=== PATIENT | male | born 1965 | race Caucasian/White ===

== ENCOUNTER → 2020-04-23 | Outpatient (CLI) | payer OTHER ==
[~2020-04-23] MED LIST: ASPI81TA59 PO; ESOM20CA PO; FEXO180T81 PO; FLUT9.9S NS; LISI-334 PO; MULT-245 PO; OMEG1CAP50 PO; SIMV20TA PO
== END | disposition home or self-care (01) ==
LOC: LAB 11:00
PROVIDERS: ATTEND Registered Nurse
DX: Z01.812 Encounter for preprocedural laboratory examination (principal); R13.10 Dysphagia, unspecified; T30.0 Burn of unspecified body region, unspecified degree; Z20.828 Contact with and (suspected) exposure to other viral communicable diseases
CPT/HCPCS: C9803; U0003; 36415

== ENCOUNTER → 2020-04-27 | Day surgery (SDC) | payer OTHER ==
[~2020-04-27] MED LIST changes: +IPRATRPIUM/ALBUTEROL 0.5/2.5MG 3 ML NEBU. NEB PRN; +IV RINGERS SOLUTION,LACTATED 1,000 ML IV SCH; +MIDAZOLAM HCL PF 2 MG/2 ML VIAL. IV ONE; +ONDANSETRON PF 4 MG/2 ML VIAL. IV PRN; +PROPOFOL 10,000 MCG/ML (20ML) VIAL IV ONE
[2020-04-27 08:59] VITALS: BP 119/87
--- NOTE | 2020-04-28 18:06 | PATHOLOGY ---
[facility] Accession Number: [id number] . 01 Material submitted: . PART A: stomach - ANTRUM PART B: esophagus - DISTAL ESOPHAGUS. Modifiers: distal . 01 Clinical history: . A. Rule out H. pylori gastritis B. Esophagitis/stricture . 02 Diagnosis: A. Gastric biopsies, antrum: - Chronic gastritis, mild. . B. Esophageal biopsies, distal esophagus: - Reflux esophagitis with focally increased eosinophils. See comment. (JPM:lakisha; 04/28/2020) [facility] 04/28/2020 1002 Local . 02 Comment: Sections of the gastric biopsy reveal segments of gastric body and gastric antral mucosa showing congestion and mild chronic inflammation. A properly controlled immunoperoxidase stain for Helicobacter is negative for Helicobacter organisms. . Sections of the distal esophageal biopsy reveal segments of focally tangentially oriented hyperplastic squamous esophageal mucosa and esophagogastric mucosa showing chronic inflammation, consistent with reflux esophagitis. One of the biopsy segments of squamous esophageal mucosa shows increased intraepithelial eosinophils. Focally, there are up to 20-30 intraepithelial eosinophils per high power field. The findings are suggestive of eosinophilic esophagitis. There is no evidence of Emanuel's change, dysplasia, or malignancy. (JPM:lakisha; 04/28/2020) . . Special stain performed: Immunoperoxidase stain for Helicobacter on A1 . 02 Electronically signed: . Catracho Feng MD, Pathologist NPI- [id number] . 01 Gross description: . A. The specimen is received in formalin, labeled "Kalani, Ulisses, antrum" and consists of 2 fragments of pink-mann tissue measuring 0.4 x 0.2 cm each which are entirely submitted in A1. . B. The specimen is received in formalin, labeled "Potter, Ulisses, distal esophagus" and consists of multiple fragments of mann tissue measuring 1.0 x 0.5 x 0.2 cm in aggregate which are entirely submitted in B1. (SDY; 04/27/2020) [facility]/SYU 04/27/2020 1615 Local . 02 Pathologist provided ICD-10: K29.50, K21.0 . 02 CPT . 372647, 772292, [id number] Specimen Comment: A courtesy copy of this report has been sent to [phone], [phone] Specimen Comment: [id number] Specimen Comment: Report sent to / DR ABARCA Performed at: 01 [facility] [address], [place] [id number] MD Petr Turner MD Phone: [phone] Performed at: 02 [facility] [place] [place] [address] [place], [place] [id number] MD Catracho Feng MD Phone: [phone]
== END | disposition home or self-care (01) ==
LOC: SURG 06:59
PROVIDERS: ATTEND Internal Medicine Gastroenterology
DX: R13.10 Dysphagia, unspecified (principal); K22.2 Esophageal obstruction; K29.50 Unspecified chronic gastritis without bleeding; K21.0 Gastro-esophageal reflux disease with esophagitis; I10 Essential (primary) hypertension; G47.33 Obstructive sleep apnea (adult) (pediatric); M19.90 Unspecified osteoarthritis, unspecified site; Z79.82 Long term (current) use of aspirin; Z98.890 Other specified postprocedural states; Z79.899 Other long term (current) drug therapy
CPT/HCPCS: 43239; 43450; J2704; J7120

== ENCOUNTER 2021-10-20 10:51 | Emergency (ER) | payer OTHER ==
[~2021-10-20] VITALS: Ht 172.7 cm; Wt 93.1 kg
[~2021-10-20 10:51] MED LIST changes: -IPRATRPIUM/ALBUTEROL 0.5/2.5MG 3 ML NEBU. NEB PRN; -IV RINGERS SOLUTION,LACTATED 1,000 ML IV SCH; -LISI-334 PO; +LISI20TA18 PO; -MIDAZOLAM HCL PF 2 MG/2 ML VIAL. IV ONE; -ONDANSETRON PF 4 MG/2 ML VIAL. IV PRN; -PROPOFOL 10,000 MCG/ML (20ML) VIAL IV ONE
--- NOTE | 2021-10-20 11:54 | RAD ---
EXAM: Chest, 2 views. HISTORY: Short of breath. Covid 19. COMPARISON: None. FINDINGS: 2 views of the chest are obtained. There is right upper and suspected left lower lobe inter stitial infiltrate. There is no consolidation, pleural effusion or pneumothorax. The heart is normal in size. There has been distal right clavicular resection. IMPRESSION: Right upper lobe and suspected left lower lobe interstitial infiltrate. Electronically signed by: Wendy Jenkins MD (10/20/2021 11:51 AM) [id number]
[2021-10-20 12:00] VITALS: BP 135/78
--- NOTE | 2021-10-20 12:05 | PHYS DOC ---
Adult General Chief Complaint Chief Complaint: SHORTNESS OF BREATH HPI HPI Patient is a 56-year-old male presenting via POV for cough. States he has had several days of upper respiratory symptoms that have developed into a productive cough. Does admit he is unvaccinated against COVID-19 and that he recently tested positive via rapid test at outlying urgent care. States he has history of hypertension otherwise no other medical diagnoses. Has been utilizing NyQuil and DayQuil without relief, started Mucinex this morning without noticeable improvement prompting him to come in for evaluation. No fever greater than 100.4, syncope, chest pain, ripping or tearing sensation in torso, abdominal pain, urinary symptoms, changes in motor or sensory or neuro function Review of Systems Review of Systems Fourteen body systems of review of systems have been reviewed. See HPI for pertinent positives and negative responses, other sue all other systems are negative, non-pertinent or non-contributory Allergies Allergies Allergies Coded Allergies Type Severity Reaction Last Updated Verified No Known Drug Allergies 04/20/20 No Physical Exam Physical Exam General: Appears well, non toxic, and comfortable Skin: Warm, dry. Normal for ethnicity. HEENT: Atraumatic. PERRLA. Rhinorrhea and congestion. Nasal turbinates boggy b/l . Moist mucous membranes. Uvula midline. Maintaining secretions. No phonation changes. Neck: Trachea midline. Normal ROM. No stridor. Respiratory: Normal WOB. No tachypnea or signs of respiratory distress. Patient does have crackles present to bilateral lung bases and right upper lobe area Cardiovascular: Regular rate and rhythm. Normal peripheral perfusion. Abdomen: Soft. Non tender. No distension. Back: Normal ROM. Musculoskeletal: No swelling or deformity. Neuro: Alert and oriented x 4. MAEE. Lymph: No cervical LAD. Psych: Normal affect and mood. Current Patient Data Vital Signs Vital Signs Date Time Temp Pulse Resp B/P (MAP) Pulse Ox O2 Delivery O2 Flow Rate FiO2 10/20/21 11:01 86 20 97 Room Air EKG EKG [] Radiology/Procedures Radiology/Procedures EXAM: Chest, 2 views. HISTORY: Short of breath. Covid 19. COMPARISON: None. FINDINGS: 2 views of the chest are obtained. There is right upper and suspected left lower lobe interstitial infiltrate. There is no consolidation, pleural effusion or pneumothorax. The heart is normal in size. There has been distal right clavicular resection. IMPRESSION: Right upper lobe and suspected left lower lobe interstitial infiltrate. Electronically signed by: Wendy Jenkins MD (10/20/2021 11:51 AM) [id number] Heart Score C/O Chest Pain: No Risk Factors: Risk Factors: DM, Current or recent (<one month) smoker, HTN, HLP, family history of CAD, obesity. Risk Scores: Risk Factors: DM, Current or recent (<one month) smoker, HTN, HLP, family history of CAD, obesity. Course & Med Decision Making Course & Med Decision Making ABCs unremarkable HPI physical exam and comprehensive ER work-up concerning for pneumonia in the setting of known Covid positive individual who is unvaccinated against COVID-19 Joint decision made to start antibiotics with subsequent prescription written. Little indication for further diagnostic work-up in ER setting and/or need for hospitalization at present. Continued supportive care practices, self quarantine, and adherence to CDC protocol advised with recommendations to follow-up with primary care in outpatient setting when safe to do so. Strict return precautions discussed at length prior to ER departure Christianon Disclaimer Dragon Disclaimer This electronic medical record was generated, in whole or in part, using a voice recognition dictation system. Departure Departure: Impression: Primary Impression: Pneumonia due to COVID-19 virus Disposition: HOME / SELF CARE / HOMELESS Condition: STABLE Referrals: HAKAN ABARCA DO (PCP) Patient Instructions: Pneumonia, Adult Additional Instructions: You have been diagnosed with COVID-19. It is an infection caused by a new type of coronavirus. COVID-19 will cause cold-like or mild flu symptoms in most. It can cause more severe symptoms like problems breathing in some. There is no treatment for COVID-19. The body will clear the infection over time. Self-care will help to ease discomfort. With that said, you were found to have a fever today in the setting of pneumonia and so joint decision was made to continue to treat fever with NSAIDs and/or Tylenol and your pneumonia with azithromycin and amoxicillin antibiotics. Steps to Take: Self-Care Rest as needed. Healthy habits may help you feel better. Steps include: Choose healthy foods including fruits and vegetables. Drink water throughout the day. Get plenty of sleep each night. If you smoke, try to quit. It may ease breathing. Avoid alcohol. Keep Others Healthy The virus can spread to others. Droplets are released every time you sneeze or cough. The droplets can get into the mouth, nose, or eyes of people near you and lead to infection. To lower the chances of spreading COVID-19 to others: Stay at home until your doctor has said it is safe to leave. If you tested positive this will mean staying isolated per CDC guidelines depending on your vaccination status - Avoid public areas, events, or transportation. Do not return to work or school until your doctor has said it is safe to do so. - Call ahead if you need to go to a medical center. Let them know you may have COVID-19. It will help them guide you where to go. They may also ask you to wear a facemask when you come to the office. - If you call for emergency medical services, let them know you may have COVID-19. While at home: - Try to avoid close contact with others. Stay about 6 feet away. - If possible, spend most of your time in a separate room from others. - Use a face mask if you will be in close contact with others such as sharing a room or vehicle. - Have someone wipe down common surfaces in the home. Use household firer portable boiler every day on areas like doorknobs, counters, or sinks. - Cough or sneeze into a tissue. Throw the tissue away right after use. If a tissue is not available, cough or sneeze into your elbow. - Wash your hands often. Wash them after sneezing or coughing. Use soap and water and wash for at least 20 seconds. Alcohol based hand flue cleaner can be used if soap and water is not available. - Do not prepare food for others. Avoid sharing personal items like forks, spoons, or toothbrushes. - Avoid close contact with pets while you are sick. There is no evidence of the virus passing to pets. This is a safety step until more is known about this virus. Isolation can be frustrating. Social interaction can help. Keep in touch with friends and family through phone and tech options. You can still interact with others in your home, just keep a safe distance of about 6 feet. Follow-up: Your doctors office will check in with you to see if there are any changes in your health. You may be asked to keep track of symptoms to share with them. They will also let you know when you are clear to be in public again. Problems to Look Out For: Contact your doctor if your recovery is not going as you expect. Get emergency care if you have problems such as: - Trouble breathing - Nonstop chest pain or pressure - Changes in awareness, confusion, or problems waking - Lips or face have bluish color - Worsening of symptoms If you think you have an emergency, call for emergency medical services right away. Scripts Azithromycin (AZITHROMYCIN TABLET) 250 Mg Tablet 250 MG PO DAILY for ANTI-BIOTIC, #4 TAB 0 Refills Prov: ISMAEL GREGORY DO 10/20/21 Amoxicillin (AMOXICILLIN) 500 Mg Tablet 2 TAB PO TID for pneumonia for 5 Days, #30 TAB Prov: ISMAEL GREGORY DO 10/20/21 ISMAEL GREGORY DO Oct 20, 2021 12:05
[2021-10-20] MEDS ORDERED: AZIT250T6 PO (12:29)
[2021-10-20] MEDS ORDERED: AMOX500T PO (12:29)
[2021-10-20] MEDS ORDERED: AZITHROMYCIN 250 MG TABLET. PO ONE (12:30)
[2021-10-20] MEDS ORDERED: AMOXICILLIN 250 MG CAPSULE PO ONE (12:30)
== END 2021-10-20 13:10 | disposition home or self-care (01) ==
LOC: ER 10:51
DX: U07.1 COVID-19 (principal); J12.82 Pneumonia due to coronavirus disease 2019; I10 Essential (primary) hypertension
CPT/HCPCS: 71046; 99283

== ENCOUNTER 2021-10-24 04:49 | Inpatient (IN) | payer OTHER ==
[~2021-10-24] VITALS: Ht 172.7 cm; Wt 91.6 kg
[~2021-10-24 04:49] MED LIST changes: +AMOX500T PO; +AZIT250T6 PO
--- NOTE | 2021-10-24 05:29 | PHYS DOC ---
Past History Past Medical History: Hypertension Past Surgical History: Other Additional Past Surgical Histo: "multiple joint", back Alcohol Use: None General Adult EDM: Chief Complaint: SHORTNESS OF BREATH HPI: HPI: ".. I got COVID... I was sick .. Sunday.. I did get the shot... Didnt think I needed.. it.. but I got checked at [facility].. and Felecia just gotten more short of breath all week...".. " I ache every where...fever.. chills.. " :'".. I tried to not come in.. ".. 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 Patient presents this morning with increased dyspnea. Patient satting in 70 to 80% on room air. Patient does not have home oxygen. There are other members family that also have Covid. No recent travel. No specific ill contacts outside the family unit. Patient normally healthy. Patient does not get flu vaccination and tetanus vaccination and did not get COVID vaccination. Patient does have a history of hypertension. Review of Systems: Review of Systems: Constitutional: Complains of fever or chills Eyes: Denies change in visual acuity HENT: Denies nasal congestion or sore throat Respiratory: Complains of nonproductive cough and shortness of breath Cardiovascular: Complains of chest discomfort GI: Denies abdominal pain, nausea, vomiting, bloody stools or diarrhea : Denies dysuria Musculoskeletal: Complains of generalized myalgia and arthralgia Integument: Denies rash Neurologic: Denies headache, focal weakness or sensory changes Endocrine: Denies polyuria or polydipsia Lymphatic: Denies swollen glands Psychiatric: Denies depression or anxiety Family History: Family History: Noncontributory to presentation Current Medications: Current Meds: See nursing for home meds Allergies: Allergies: Allergies Coded Allergies Type Severity Reaction Last Updated Verified No Known Drug Allergies 04/20/20 No Physical Exam: PE: Constitutional: Moderate acute distress, non-toxic appearance. [] HENT: Normocephalic, atraumatic, bilateral external ears normal, oropharynx moist, postnasal drainage, no oral exudates, nose swollen turbinates and clear rhinorrhea. Eyes: PERRLA, EOMI, conjunctiva normal, no discharge. Glasses Neck: Normal range of motion, no tenderness, supple, no stridor. [] Cardiovascular: Tachycardia heart rate regular rhythm, no murmur, PMI to the left Lungs & Thorax: Bilateral breath sounds equal apex with scattered wheezes on auscultation [. Bibasilar crackles , more on Rt. Abdomen: Bowel sounds normal, soft, no tenderness, no masses, no pulsatile mass es. [] Skin: Warm, dry, no erythema, no rash. Poor turgor Back: No tenderness, no CVA tenderness. [] Extremities: No tenderness, no cyanosis, no clubbing, ROM intact, no edema. No cording appreciated Neurologic: Alert and oriented X 3, normal motor function, normal sensory function, no focal deficits noted. [] Psychologic: Affect anxious , judgement normal, mood normal. [] EKG: EKG: My interpretation EKG shows a sinus rhythm at 89 bpm. Leftward axis. No findings of acute STEMI of contralateral changes. Time of EKG is 0517 hrs. [] Radiology/Procedures: Radiology/Procedures: My interpretation of chest x-ray shows diffuse patchy infiltrates consistent with Covid pneumonia. Does have bibasilar atelectasis. Monitor cardiomegaly. Formal interpretation of EKG pending at shift change. [] Heart Score: C/O Chest Pain: Yes HEART Score for Chest Pain: HEART Score for Chest Pain Response (Comments) Value History Slighlty/Non-Suspicious 0 ECG Normal 0 Age >45 - < 65 1 Risk Factors 1 or 2 Risk Factors 1 Troponin < Normal Limit 0 Total 2 Risk Factors: Risk Factors: DM, Current or recent (<one month) smoker, HTN, HLP, family history of CAD, obesity. Risk Scores: Score 0 - 3: 2.5% MACE over next 6 weeks - Discharge Home Score 4 - 6: 20.3% MACE over next 6 weeks - Admit for Clinical Observation Score 7 - 10: 72.7% MACE over next 6 weeks - Early Invasive Strategies Course & Med Decision Making: Course & Med Decision Making Pertinent Labs and Imaging studies reviewed. (See chart for details) Discussed presentation, testing and tx. plan with Dr. Parish. Admit to his service. Endorse to Dr. Bach at shift change. Impression: 1. Respiratory Failure- Hypoxia 2. COVID - Pneumonia 3. Hx. HTN 4. Elevated D-dimer 2.13 [] Dragon Disclaimer: Annette Disclaimer: This electronic medical record was generated, in whole or in part, using a voice recognition dictation system. Departure Departure: Referrals: HAKAN ABARCA DO (PCP) Annette Disclaimer This chart was dictated in whole or in part using Voice Recognition software in a busy, high-work load, and often noisy Emergency Department environment. It may contain unintended and wholly unrecognized errors or omissions. MIKE VOGEL MD Oct 24, 2021 05:29
[2021-10-24] MEDS ORDERED: ONDANSETRON PF 4 MG/2 ML VIAL. IVP PRN (05:45)
[2021-10-24 05:47] LABS: CALCIUM 8.4 mg/dL (8.5-10.1); CREATININE 1.2 mg/dL (0.7-1.3); GFR 63.1; POTASSIUM 4.9 mmol/L (3.5-5.1)
--- NOTE | 2021-10-24 05:48 | EKG ---
[address] [address] Test Date: 2021-10-24 Test Time: 05:17:10 Pat Name: GATO RECINOS Department: Room: Gender: M Qa Automation Engineer: : [id number] Requested By: MIKE VOGEL Order Number: [id number] Reading MD: Arsen Rangel Measurements Intervals [place] Rate: 89 P: 3 NM: 148 QRS: -4 QRSD: 90 T: 5 QT: 320 QTc: 390 Interpretive Statements SINUS RHYTHM LEFTWARD AXIS Electronically Signed On 10-25-2021 12:40:53 [employer]ESS OPERATOR by Arsen Rangel
[2021-10-24] MEDS: ALBUTEROL SULFATE 8GM INHALER. INH SCH ×4 (05:49→20:45)
[2021-10-24 05:50] LABS: BASO % 1 % (0-3); EOS % 0 % (0-3); HEMATOCRIT 48.8 % (39.0-53.0); HEMOGLOBIN 16.9 g/dL (13.0-17.5); LYMPH # 0.7 x10^3/uL (1.0-4.8); LYMPH % 18 % (24-48); MEAN CORPUSCULAR HEMOGLOBIN 32 pg (25-35); MEAN CORPUSCULAR HGB CONC 35 g/dL (31-37); MEAN CORPUSCULAR VOLUME 91 fL (79-100); MONO # 0.3 x10^3/uL (0.0-1.1); MONO % 9 % (0-9); NEUT # 2.7 x10^3uL (1.8-7.7); NEUT % 72 % (31-73); PLATELET COUNT 182 x10^3/uL (140-400); RED BLOOD COUNT 5.36 x10^6/uL (4.30-5.70); RED CELL DISTRIBUTION WIDTH 12.4 % (11.5-14.5); WHITE BLOOD COUNT 3.8 x10^3/uL (4.0-11.0)
[2021-10-24] MEDS ORDERED: ACETAMINOPHEN 500 MG TABLET PO ONE (06:00)
[2021-10-24] MEDS ORDERED: ASPIRIN CHEWABLE 81 MG TABLET. PO ONE (06:00)
[2021-10-24] MEDS ORDERED: IV RINGERS SOLUTION,LACTATED 1,000 ML IV SCH (06:00)
[2021-10-24] MEDS ORDERED: AZITHROMYCIN 250 MG TABLET. PO ONE (06:00)
[2021-10-24 06:01] LABS: ALBUMIN 3.5 g/dL (3.4-5.0); DIRECT BILIRUBIN 0.1 mg/dL (0.0-0.2); MAGNESIUM 2.6 mg/dL (1.8-2.4); TOTAL BILIRUBIN 0.5 mg/dL (0.2-1.0); TOTAL PROTEIN 7.6 g/dL (6.4-8.2)
[2021-10-24] MEDS ORDERED: ANTI-COAG MONITOR BY PHARMACY. MC PRN (06:15)
--- NOTE | 2021-10-24 06:21 | RAD ---
EXAM: CHEST ONE VIEW. HISTORY: Hypoxia, COVID-19. COMPARISON: 10/20/2021. FINDINGS: A frontal view of the chest is obtained. The inspiration is small. Multifocal infiltrates on the right greater than left are consistent with a typical pneumonia. There is no pneumothorax or pleural effusion. The heart is not enlarged. IMPRESSION: 1. Multifocal infiltrates are consistent with atypical pneumonia. Electronically signed by: Breanna Robins MD (10/24/2021 6:19 AM) [id number]
[2021-10-24] MEDS ORDERED: APIXABAN 5 MG TABLET. PO SCH (07:00)
[2021-10-24] MEDS ORDERED: IOHEXOL 350 MG/ML 100 ML VIAL. IV ONE (07:30)
[2021-10-24] MEDS ORDERED: CONTRAST GIVEN. MC PRN (07:45)
[2021-10-24] MEDS: ASPIRIN CHEWABLE 81 MG TABLET. PO SCH (08:12)
--- NOTE | 2021-10-24 08:27 | RAD ---
EXAMINATION: CTA Chest With IV contrast INDICATION:56 years, Male, dyspnea, elevated d-dimer, evaluate for pulmonary embolism. History of Cov id 19 pneumonia. COMPARISON: None. TECHNIQUE: Spiral CTA was obtained from the jugular notch through the posterior costophrenic recess. 3-D MIPS, sagittal and coronal reformats were obtained. Exposure: One or more of the following individualized dose reduction techniques were utilized for thi s examination: 1. Automated exposure control 2. Adjustment of the mA and/or kV according to patient size 3. Use of iterative reconstruction technique. FINDINGS: LUNGS/PLEURA: Central airways are patent. Subpleural predominant multifocal bilateral consolidative a nd groundglass opacities. No pleural effusion or pneumothorax. No suspicious pulmonary nodule.. MEDIASTINUM: Prominent to mildly enlarged mediastinal lymph nodes measuring in subcarinal region up t o 1.5 cm in short axis, likely reactive. The thoracic aorta and pulmonary arteries are normal in unique trudi. No evidence of pulmonary embolism. The heart is normal in size. No pericardial effusion. No dete ctable calcified coronary atherosclerosis. The visualized thyroid and the esophagus are unremarkable. AXILLA/SOFT TISSUE: No supraclavicular or axillary adenopathy. Regional soft tissues are within tu l limits. UPPER ABDOMEN: The visualized upper abdomen appears unremarkable. BONES: No evidence of acute fractures or aggressive osseous lesions. IMPRESSION: 1. No evidence of pulmonary embolism. 2. Subpleural predominant multifocal bilateral consolidative and groundglass opacities, consistent wi th known Covid 19 pneumonia. Electronically signed by: Chitra Navarrete MD (10/24/2021 8:24 AM) [id number]
[2021-10-24] MEDS: BUDESONIDE 0.5 MG/2 ML NEBU NEB SCH ×2 (08:46→20:46)
[2021-10-24 12:40] VITALS: BP 130/94
[2021-10-24 15:02] VITALS: BP 114/74
[2021-10-24] MEDS ORDERED: DEXAMETHASONE SOD PHOS 10 MG/ML VIAL. IV ONE (16:30)
[2021-10-24] MEDS: ASCORBIC ACID 1,000 MG TABLET PO SCH (17:27)
[2021-10-24] MEDS: ZINC SULFATE 220 MG CAPSULE. PO SCH (17:28)
[2021-10-24 20:34] VITALS: BP 120/78
[2021-10-24] MEDS: LACTOBACILLUS RHAMNOSUS GG 1 CAPSULE. PO SCH (20:45)
[2021-10-24] MEDS: ENOXAPARIN 40 MG/0.4 ML SYRINGE. SQ SCH (20:46)
[2021-10-24] MEDS ORDERED: ACETAMINOPHEN 325 MG TABLET PO PRN (21:00)
[2021-10-24 23:12] VITALS: BP 110/67
[2021-10-25 05:48] VITALS: BP 119/78
--- NOTE | 2021-10-25 06:00 | NUR ---
Pt awake in bed at change of shift sitting up in bed wearing 8L HFNC with O2 sats 88-92%. Pt A&Ox4, pleasant and cooperative to cares and assessments. Pt took HS medications whole and ate applesauce independently. Pt up twice during night to void, O2 sats would drop and take awhile to recover to >90%. Pt slept poor during night, has hx of sleep apnea. was able to bring up home BiPAP this AM. Pt very reluctant to wear r/t high pressure levels but was agreeable, O2 sats improved to >95% with 12L HFNC on as well. Pt agreeable to wear as long as he can tolerate.
[2021-10-25 07:19] LABS: BASO % 0 % (0-3); EOS % 0 % (0-3); HEMOGLOBIN 15.4 g/dL (13.0-17.5); LYMPH # 0.6 x10^3/uL (1.0-4.8); LYMPH % 19 % (24-48); MEAN CORPUSCULAR HEMOGLOBIN 31 pg (25-35); MEAN CORPUSCULAR HGB CONC 34 g/dL (31-37); MEAN CORPUSCULAR VOLUME 92 fL (79-100); MONO # 0.3 x10^3/uL (0.0-1.1); MONO % 9 % (0-9); NEUT # 2.4 x10^3uL (1.8-7.7); NEUT % 72 % (31-73); PLATELET COUNT 219 x10^3/uL (140-400); RED BLOOD COUNT 4.91 x10^6/uL (4.30-5.70); RED CELL DISTRIBUTION WIDTH 12.3 % (11.5-14.5); WHITE BLOOD COUNT 3.3 x10^3/uL (4.0-11.0)
[2021-10-25 07:28] LABS: ALBUMIN 3.1 g/dL (3.4-5.0); ALBUMIN/GLOBULIN RATIO 0.8 (1.0-1.7); CALCIUM 8.1 mg/dL (8.5-10.1); CREATININE 1.3 mg/dL (0.7-1.3); GFR 57.5; POTASSIUM 4.7 mmol/L (3.5-5.1); TOTAL BILIRUBIN 0.4 mg/dL (0.2-1.0); TOTAL PROTEIN 7.1 g/dL (6.4-8.2)
[2021-10-25] MEDS: BUDESONIDE 0.5 MG/2 ML NEBU NEB SCH ×2 (08:26→20:42)
[2021-10-25] MEDS: DEXAMETHASONE SOD PHOS 10 MG/ML VIAL. IV SCH (08:27)
[2021-10-25] MEDS: AZITHROMYCIN 250 MG TABLET. PO SCH (08:27)
[2021-10-25] MEDS: ZINC SULFATE 220 MG CAPSULE. PO SCH (08:27)
[2021-10-25] MEDS: ASCORBIC ACID 1,000 MG TABLET PO SCH (08:27)
[2021-10-25] MEDS: LACTOBACILLUS RHAMNOSUS GG 1 CAPSULE. PO SCH ×2 (08:27→20:42)
[2021-10-25] MEDS: ASPIRIN CHEWABLE 81 MG TABLET. PO SCH (08:27)
[2021-10-25] MEDS: ALBUTEROL SULFATE 8GM INHALER. INH SCH ×4 (08:28→20:41)
[2021-10-25 11:07] VITALS: BP 112/73
[2021-10-25 15:11] VITALS: BP 113/71
[2021-10-25 19:00] VITALS: BP 110/66
[2021-10-25] MEDS: ENOXAPARIN 40 MG/0.4 ML SYRINGE. SQ SCH (20:42)
[2021-10-26 05:00] VITALS: BP 115/68
--- NOTE | 2021-10-26 05:30 | NUR ---
Pt awake in bed at change of shift laying in prone position wearing 10L HFNC with O2 sats >92%. Pt with improved O2 sats when laying on left side or prone, encouraged this positioning to pt. Pt A&Ox4, pleasant and cooperative to care and assessments. Pt took HS medications whole. Pt refused HS snack. Pt using urinal to void r/t increased SOA with exertion. Pt did have 2 coughing spell episodes during shift where O2 dropped and took about 25-30mins to recover to >90%. Pt did need O2 increased to 12L HFNC. Pt slept okay during night, has hx of sleep apnea and not wanting to wear his home BiPAP r/t complaints of high pressure. Spoke with Elvia this AM and given update.
[2021-10-26] MEDS: LACTOBACILLUS RHAMNOSUS GG 1 CAPSULE. PO SCH ×2 (08:59→20:53)
[2021-10-26] MEDS: DEXAMETHASONE SOD PHOS 10 MG/ML VIAL. IV SCH (08:59)
[2021-10-26] MEDS: ASPIRIN CHEWABLE 81 MG TABLET. PO SCH (08:59)
[2021-10-26] MEDS: ASCORBIC ACID 1,000 MG TABLET PO SCH (08:59)
[2021-10-26] MEDS: AZITHROMYCIN 250 MG TABLET. PO SCH (08:59)
[2021-10-26] MEDS: ZINC SULFATE 220 MG CAPSULE. PO SCH (08:59)
[2021-10-26] MEDS: ALBUTEROL SULFATE 8GM INHALER. INH SCH ×4 (09:00→20:52)
[2021-10-26] MEDS: BUDESONIDE 0.5 MG/2 ML NEBU NEB SCH ×2 (09:00→20:53)
[2021-10-26 10:41] VITALS: BP 136/75
[2021-10-26] MEDS ORDERED: CHOLECALCIFEROL (VITAMIN D3) 50,000 UNIT CAPSULE PO SCH (14:00)
[2021-10-26 15:30] VITALS: BP 110/63
--- NOTE | 2021-10-26 17:24 | PN ---
ATTENDING PHYSICIAN: Dr. Parish. SUBJECTIVE: He is dyspneic with minimal exertion. He is having a mild nonproductive cough. Otherwise, no new complaints. OBJECTIVE FINDINGS: VITAL SIGNS: Blood pressure this morning is 115/68, pulse ____ and regular. He is afebrile. Oxygen saturation 93% on 10 liters by nasal cannula. HEENT: Head is without trauma. Pupils are reactive. Sclerae nonicteric. The oropharynx is clear. NECK: Supple, no bruits. LUNGS: Coarse rhonchi bilaterally. CARDIOVASCULAR: Regular heart tones. No gallop. ABDOMEN: Soft. EXTREMITIES: Without edema. NEUROLOGIC FUNCTION: Focally intact. Speech is fluent. ASSESSMENT: 1. Acute hypoxemic respiratory failure. 2. COVID-19 pneumonia bilaterally in an unvaccinated patient. 3. Possible superimposed community-acquired pneumonia. 4. Essential hypertension. PLAN: 1. Continue Zithromax and ceftriaxone. 2. Continue Decadron. 3. Wean down supplemental oxygen. 4. Follow and continue zinc and bronchodilators. ANGELES/OLVIN/MONTANA DR: ANGELES/mira TID: [id number]
[2021-10-26] MEDS ORDERED: MELATONIN 3 MG TABLET PO PRN (18:45)
[2021-10-26] MEDS: CETIRIZINE HCL 10 MG TABLET PO SCH (18:58)
[2021-10-26] MEDS: guaiFENesin/CODEINE 100mg/10mg 5 ML LIQUID PO PRN (18:58)
[2021-10-26 19:20] VITALS: BP 123/71
[2021-10-26] MEDS: BENZONATATE 100 MG CAPSULE. PO SCH (20:52)
[2021-10-26] MEDS: ENOXAPARIN 40 MG/0.4 ML SYRINGE. SQ SCH (20:53)
[2021-10-26] MEDS: FAMOTIDINE 20 MG TABLET PO SCH (20:53)
[2021-10-27] MEDS: guaiFENesin/CODEINE 100mg/10mg 5 ML LIQUID PO PRN ×2 (03:19→11:24)
--- NOTE | 2021-10-27 04:15 | NUR ---
Assumed care of pt at this time. Report received from Kenna SHAVER. Pt currently resting in bed with 5L HFNC + 10L NRB in place, sating 93-95%.
--- NOTE | 2021-10-27 05:33 | NUR ---
Pt's Elvia called to check on pt, update given.
[2021-10-27 06:11] LABS: BASO % 0 % (0-3); EOS % 0 % (0-3); HEMATOCRIT 43.4 % (39.0-53.0); HEMOGLOBIN 14.6 g/dL (13.0-17.5); LYMPH # 0.6 x10^3/uL (1.0-4.8); LYMPH % 6 % (24-48); MEAN CORPUSCULAR HEMOGLOBIN 31 pg (25-35); MEAN CORPUSCULAR HGB CONC 34 g/dL (31-37); MEAN CORPUSCULAR VOLUME 92 fL (79-100); MONO # 0.7 x10^3/uL (0.0-1.1); MONO % 7 % (0-9); NEUT # 9.3 x10^3uL (1.8-7.7); NEUT % 87 % (31-73); PLATELET COUNT 268 x10^3/uL (140-400); RED CELL DISTRIBUTION WIDTH 12.2 % (11.5-14.5); WHITE BLOOD COUNT 10.6 x10^3/uL (4.0-11.0)
[2021-10-27 06:26] VITALS: BP 122/75
[2021-10-27 06:31] LABS: ALBUMIN 2.8 g/dL (3.4-5.0); ALBUMIN/GLOBULIN RATIO 0.8 (1.0-1.7); CALCIUM 8.2 mg/dL (8.5-10.1); GFR 77.9; POTASSIUM 4.9 mmol/L (3.5-5.1); TOTAL BILIRUBIN 0.4 mg/dL (0.2-1.0); TOTAL PROTEIN 6.4 g/dL (6.4-8.2)
--- NOTE | 2021-10-27 07:58 | RAD ---
Single view chest dated 10/27/2021 7:54 AM: COMPARISON: 10/24/2021 Clinical Indication: Follow-up Covid. Shortness of breath and cough. Findings: Single upright portable exam of the chest was performed. Heart and mediastinal contours are stable. T here is patchy airspace disease at the perihilar regions and bilateral lung bases, somewhat increased on the left but improved on the right. No pleural effusion. No pneumothorax. IMPRESSION: 1. Bilateral airspace disease, overall similar to slightly improved. Electronically signed by: Parminder Hart MD (10/27/2021 7:55 AM) [id number]
[2021-10-27] MEDS: ASCORBIC ACID 1,000 MG TABLET PO SCH (09:00)
[2021-10-27] MEDS: ALBUTEROL SULFATE 8GM INHALER. INH SCH ×2 (09:00→13:00)
[2021-10-27 09:03] VITALS: BP 124/70
[2021-10-27] MEDS: ZINC SULFATE 220 MG CAPSULE. PO SCH (10:21)
[2021-10-27] MEDS: BENZONATATE 100 MG CAPSULE. PO SCH (10:21)
--- NOTE | 2021-10-27 10:21 | PN ---
DATE: 10/27/2021 ATTENDING PHYSICIAN: Irma Parish MD SUBJECTIVE: Dyspneic with minimal exertion. He is not feeling any better. OBJECTIVE FINDINGS: VITAL SIGNS: Oxygen requirements have increased. He is up to 15 liters nonrebreather to maintain a sat of 89%. He is afebrile. Blood pressure is 124/70 mmHg. HEENT: Head is without trauma. Pupils are reactive. Sclerae nonicteric. The oropharynx is clear. NECK: Supple. LUNGS: Coarse rhonchi bilaterally. CARDIOVASCULAR: Regular heart tones. ABDOMEN: Soft. EXTREMITIES: Without edema. NEUROLOGIC: Focally intact. ASSESSMENT: 1. Acute hypoxemic respiratory failure. 2. COVID-19 pneumonia bilaterally. 3. Superimposed community-acquired pneumonia. 4. Essential hypertension. PLAN: 1. Continue IV antibiotics. 2. Supplemental oxygen has been increased. 3. We are working on transfer to a higher level of care. The family requests [facility]. Therefore, right now he is on a waiting list. I have discussed this with him and his family. BROOKS DR: Pradeep TID: [id number]
[2021-10-27] MEDS: AZITHROMYCIN 250 MG TABLET. PO SCH (10:22)
[2021-10-27] MEDS: FAMOTIDINE 20 MG TABLET PO SCH (10:22)
[2021-10-27] MEDS: CETIRIZINE HCL 10 MG TABLET PO SCH (10:22)
[2021-10-27] MEDS: LACTOBACILLUS RHAMNOSUS GG 1 CAPSULE. PO SCH (10:22)
[2021-10-27] MEDS: ASPIRIN CHEWABLE 81 MG TABLET. PO SCH (10:22)
[2021-10-27] MEDS: BUDESONIDE 0.5 MG/2 ML NEBU NEB SCH (10:23)
[2021-10-27] MEDS: DEXAMETHASONE SOD PHOS 10 MG/ML VIAL. IV SCH (10:23)
[2021-10-27 11:00] VITALS: BP 124/76
--- NOTE | 2021-10-27 13:17 | DS ---
DATE OF DISCHARGE: 10/27/2021 ATTENDING PHYSICIAN: Dr. Woodruff. FINAL DISCHARGE DIAGNOSES: 1. Acute hypoxemic respiratory failure. 2. COVID-19 pneumonia bilaterally. 3. Essential hypertension. HISTORY AND PHYSICAL: The patient is a pleasant 56-year-old gentleman admitted through the ED with COVID pneumonia. He tested positive. Unfortunately, he has not been vaccinated and stated that he did not need it. He has become increasingly short of breath with a nonproductive cough. Supplemental oxygen was added. He was admitted for further treatment and evaluation. PHYSICAL EXAMINATION: Please see the dictated note. PERTINENT LABORATORY AND X-RAY STUDIES: Hemoglobin on admission was 16.9 g/dL, white count 3800. Repeat white count was slightly higher at 10,600 due to Decadron therapy. Chemistry panel unremarkable with normal creatinine at 1.0 mg percent. Nonfasting blood sugar 115. Troponins were negative. Transaminases slightly elevated. Chest x-ray as noted on followup films and CT scan showed no blood clots; however, he has diffuse bilateral ground glass appearing infiltrates in both bases. COURSE IN THE HOSPITAL: The patient was admitted. He was started on supplemental oxygen, initially 4 liters. We had to increase this to 8 liters and eventually 12 liters to maintain saturations above 90%. He was started on Decadron and Lovenox along with empiric IV antibiotics for prevention of secondary bacterial pneumonia. On the fourth hospital day, arrangements were made for the patient to be [place] to [facility] [place] I spoke with Dr. Perez, the hospitalist second language tutor. I gave him the details of the patient's condition. They are agreeable to accepting him for further treatment and evaluation. On the afternoon of the 4th hospital day, the patient was transferred by ambulance to [facility] [place] for further treatment regarding his respiratory failure and pneumonia. Total discharge time is 41 minutes. WENDY/CHITRA DR: Pradeep TID: [id number] CC: DAMIAN PEREZ MD
--- NOTE | 2021-10-27 14:21 | NUR ---
Patient was transferred to [facility] for a higher level of care due to increased oxygen requirements. Patient was in a guarded position upon transfer patient was very short of breath. [facility] by this RN and EMS personnel. Patient was placed on 15L NRB for transport. Patients belongings were sent with the patient which included a cell phone, cell phone maturity checker, wallet, and BIPAP machine. Report was called to JEFF SHAVER at [place]. Patient will be in room 359.
--- NOTE | 2021-10-28 15:37 | HP ---
DATE OF SERVICE: 10/25/2021 ADMIT DATE: 10/24/2021 SUBJECTIVE: The patient is resting, slightly propped up on his left decubitus position feeling generally better, although, his oxygen requirement has risen up to 15 liters. When he lies on his side, his oxygen requirement comes down. Denied any chest pain or shortness of breath. PHYSICAL EXAMINATION: GENERAL: When I examined him, he looked well and was clearly in no apparent respiratory distress. No pallor, jaundice or cyanosis. No lymphadenopathy, no thyromegaly, no jugular venous distention. No limb edema. VITAL SIGNS: His heart rate was 71, blood pressure is 113/71, temperature was 96.2, respiratory rate was 26 and oxygen saturation was 93%, in fact it was 94 or 95% on 13 liters of oxygen by nasal cannula. HEAD, EYES, EARS, NOSE, AND THROAT: Normocephalic, atraumatic. NECK: Supple. HEART: Normal first and second heart sounds. No gallop or murmur. CHEST: Shows central trachea, equal bilateral chest expansion, air entry, vesicular breath sounds. I could not appreciate any crepitation or rhonchi. ABDOMEN: Distended, soft, nontender. NEUROLOGIC: He was grossly intact. His intake over the last 24 hours and output are incompletely recorded. LABORATORY DATA: This morning showed a white cell count of 3300, hemoglobin 15, hematocrit 45, MCV 92 and platelet count 219,000 with normal manual differential. Serum sodium was 136, potassium 4.7, chloride 98, bicarbonate 27, anion gap of 11, BUN 23, creatinine 1.3, estimated GFR was 57 mL per minute, his glucose 135, calcium was 8.1. Total bilirubin and alkaline phosphatase are normal. AST, ALT slightly elevated. His total protein 7.1, albumin was 3.1. ASSESSMENT: 1. Acute hypoxic respiratory failure. 2. COVID-19 pneumonia. 3. Possible superimposed community-acquired pneumonia. 4. The patient has also hypertension. He has elevated D-dimer; however, CT angio did not reveal any evidence of pulmonary embolism, but it did show subpleural predominant multifocal bilateral consolidative and ground glass opacities consistent with known COVID-19 pneumonia. PLAN: My plan is to continue with IV antibiotic in the form of Zithromax and ceftriaxone. Continue with dexamethasone. Continue with Lovenox. Continue with ascorbic acid and zinc sulfate. Continue all his bronchodilators. DAVINA DR: Zeinab TID: [id number]
[2021-10-31] MEDS ORDERED: APIXABAN 5 MG TABLET. PO SCH (09:00)
== END 2021-10-27 14:00 | disposition short-term general hospital (02) | DRG 177 ==
LOC: ER 04:49 → ER HOLD 06:15 → 1 SOUTH 11:46
PROVIDERS: ADMIT Internal Medicine; ATTEND Internal Medicine
PROC: 5A0935A Assistance with Respiratory Ventilation, Less than 24 Consecutive Hours, High Flow/Velocity Cannula (ICD-10-PCS; principal; 2021-10-24)
PROC: 5A0935A Assistance with Respiratory Ventilation, Less than 24 Consecutive Hours, High Flow/Velocity Cannula (ICD-10-PCS; 2021-10-25)
PROC: 5A0935A Assistance with Respiratory Ventilation, Less than 24 Consecutive Hours, High Flow/Velocity Cannula (ICD-10-PCS; 2021-10-26)
PROC: 5A0935A Assistance with Respiratory Ventilation, Less than 24 Consecutive Hours, High Flow/Velocity Cannula (ICD-10-PCS; 2021-10-27)
DX: U07.1 COVID-19 (principal); J12.82 Pneumonia due to coronavirus disease 2019; J96.01 Acute respiratory failure with hypoxia; J15.9 Unspecified bacterial pneumonia; I10 Essential (primary) hypertension; Z79.899 Other long term (current) drug therapy
CPT/HCPCS: 36415; 71045; 71275; 80048; 80053; 80076; 82550; 82803; 83690; 83735; 83880; 84443; 84484; 85025; 85379; 85610; 85730; 87040; 93005; 94640; 96360; J0696; J1100; J1650; J7120; Q9967; 94664; 99285-25